=== PATIENT | female | born 1950 | race Caucasian/White ===

== ENCOUNTER 2023-04-11 09:07 | Outpatient (CLI) | payer MEDICARE, SELFPAY ==
--- NOTE | ~2023-04-11 | XR_ITS ---
EXAMINATION: XR abdomen/kub 1V INDICATION: Right-sided kidney stones TECHNIQUE: Supine views of the abdomen were obtained on 2 radiographs. COMPARISON: None FINDINGS: A 12 mm calcification projects in the right mid abdomen, possibly within the right ureter. A 6 mm calcification projects at the left kidney. A moderate volume of colonic stool is present. Ther e is a 3 mm calcification of the left there is a 3 mm stone of the right kidney upper pole. The visua lized lung bases are clear. Pelvis. A 4 mm calcifications noted in the right pelvis. IMPRESSION: 1. Right mid abdominal calcification which could be within the right ureter. 2. Bilateral lithiasis. 3. Pelvic calcifications, possibly phleboliths. Recommend comparison with any available CT imaging. Reviewed, dictated and finalized at location B. IRRIGATOR IMPRESSION: 1. Right mid abdominal calcification which could be within the right ureter. 2. Bilateral lithiasis. 3. Pelvic calcifications, possibly phleboliths. Recommend comparison with any a vailable CT imaging.
== END 2023-04-11 09:08 | disposition home or self-care (01) ==
PROVIDERS: PCP Family Medicine; Visit Provider Urology
DX: N20.0 Calculus of kidney (principal)
CPT/HCPCS: 74018

== ENCOUNTER 2023-04-26 12:51 | Outpatient (CLI) | payer MEDICARE, SELFPAY ==
[2023-04-26 13:37] LABS: Anion Gap 9 mmol/L (8-16); Blood Urea Nitrogen 11 mg/dL (7-17); Calcium 9.4 mg/dL (8.4-10.2); Carbon Dioxide 24 mmol/L (22-30); Chloride 104 mmol/L (98-107); Estimated Glomerular Filt Rate > 60; Glucose 142 mg/dL (65-110); INR 0.9; Potassium 3.8 mmol/L (3.4-5.0); Prothrombin Time 12.9 Seconds (11.1-14.7); Sodium 137 mmol/L (137-145)
== END 2023-04-26 12:52 | disposition home or self-care (01) ==
LOC: ANHSURGERY 12:55
PROVIDERS: Anesthesiology; PCP Family Medicine; Visit Provider Urology
DX: Z01.818 Encounter for other preprocedural examination (principal); Z79.899 Other long term (current) drug therapy; N20.0 Calculus of kidney
CPT/HCPCS: 36415; 80048; 85610; 85730; 87086

== ENCOUNTER 2023-04-29 01:39 | Day surgery (SDC) | payer MEDICARE, SELFPAY ==
[2023-04-20 12:56] VITALS: BMI 17.4
--- NOTE | 2023-04-20 13:23 | PC.NURSE ---
Addendum entered by Charla Giron RN 04/20/23 13:33: PT INFORMED TO USE SYMBICORT INHALER AM OF SURGERY - UNDERSTANDING VOICED Original Note: PRE-OP INSTRUCTIONS, PLEASE READ CAREFULLY Report to the Outpatient Waiting Room, entrance under the green pavilion located off [facility], at time _1030_ on date _04/29/23_. Planned Procedure Time: _1230_. Time changes happen often and if your time is changed the preop area will call you the afternoon before. - You and your visitor will be asked to self-screen and do not enter if you have any COVID symptoms. - A mask is optional within the hospital at this time. Patients may have clear liquids (water, carbonated beverages, clear teas, apple juice) until 3 hours prior to surgery (0930 AM) with a maximum of 20 ounces. - No food from midnight until time of surgery Take the following medications with a SIP of water the morning of surgery: _DILTIAZEM__ DO NOT STOP ANY OF YOUR OTHER PRESCRIPTION MEDICATIONS PRIOR TO SURGERY ?EXCEPT THE FOLLOWING Medications to discontinue per physician ___NONE____, Date to take last dose Please no make-up, nail estonian, hairspray, perfume, deodorant, or body powder the day of surgery. No jewelry (including any body piercings) or valuables the day of surgery, leave them at home. Please take a shower or bath the night before, or the morning of, surgery with an antibacterial soap. Wear comfortable, loose fitting clothing. - Jewelry must be removed prior to entering the operating room. Rings and piercings that are not removed may be cut off. - The hospital will not accept responsibility for valuables. - Please leave all valuables, including medications, at home the day of surgery. If you are going home after surgery, a licensed driver service technician must drive you home. - NO public transportation without another adult if you receive anesthesia. - We recommend that an adult stay with you for 24 hours following discharge. - We also recommend that you do not drive, make important decision, drink alcoholic beverages, or take any drugs that were not prescribed by your health care provider for at least 24 hours after your discharge time. Follow any additional instructions given to you from your surgeon. If you or anyone in your household have experienced Covid symptoms in the past week, please notify your surgeon or the nurse liaison at the phone number below for possible testing. Telephone instructions given to _PATIENT_and asked if any additional questions and then verbalized understanding. Patient advised to call surgeon office or pre surgery nurse liaison [phone] if any additional questions.
--- NOTE | 2023-04-28 13:46 | WPDANESEPPF ---
Anes - Initial Pre Proc Eval Procedure: Operation Date: 04/29/23 11:30 Proposed Procedures p Right Extracorporeal Shock Wave Lithotripsy - Odilon Goff MD s Cystoscopy, with Right Retrograde Pyelography - Odilon Goff MD Date/Time: 04/28/23 13:46 Surgeon: Odilon Goff MD Pre Op Diagnosis: right renal kidney stone Patient Data Age: 72 Gender: F Height: 1.55 m Weight: 41.81 kg Allergies Allergy/AdvReac Type Severity Reaction Status Date / Time cephalexin AdvReac UNABLE TO Unverified 04/20/23 12:52 RECALL gabapentin AdvReac INVOLUNTARY Verified 04/20/23 12:52 MUSCLE JERKING metronidazole [From Flagyl] AdvReac UNABLE TO Verified 04/20/23 12:52 RECALL Home Medications Medication Instructions Recorded Confirmed Type budesonide-formoterol HFA 160 2 puff inhalation BID 04/20/23 04/20/23 History mcg-4.5 mcg/actuation aerosol inhaler (Symbicort) cholecalciferol (vitamin D3) 25 25 mcg PO DAILY 04/20/23 04/20/23 History mcg (1,000 unit) tablet diltiazem HCl 240 mg 240 mg PO DAILY 04/20/23 04/20/23 History capsule,extended release 24 hr furosemide 20 mg tablet 20 mg DAILY 04/20/23 04/20/23 History nitrofurantoin 100 mg BID 04/20/23 04/20/23 History monohydrate/macrocrystals 100 mg capsule omeprazole 20 mg capsule,delayed 20 mg PO DAILY 04/20/23 04/20/23 History release potassium 20 mg chewable tablet 40 mg PO DAILY 04/20/23 04/20/23 History tramadol 50 mg tablet 100 mg BID 04/20/23 04/20/23 History trazodone 100 mg tablet 200 mg HS 04/20/23 04/20/23 History Results Review: All pre-operative results and documents have been reviewed as part of the pre-operative evaluation. [facility] Past Medical History Medical History (Updated 04/28/23 @ 13:48 by Addison Argueta DO) Benign tumor of lung CHF (congestive heart failure) Fibromyalgia GERD (gastroesophageal reflux disease) Tachycardia Surgical History Surgical History (Updated 04/28/23 @ 13:48 by Addison Argueta DO) History of kidney transplant Social History Social History Smoking packs per day: 1 Smoking cigarettes per day: 20.0 Years smoked: 10 Smoking pack-years: 10.00 Smoking status: Former smoker Tobacco type: cigarettes Second hand tobacco smoke exposure: No Smoking end date: 02/22/12 Alcohol intake: never Substance use: never Substance use type: does not use Living arrangements: with family Spiritual care concerns: No Anes - Eval Final PreProcedure Day of Procedure 04/28/23 13:46 Patient weight: normal Heart: regular rate and rhythm Lungs: clear to auscultation and normal air movement Airway: Mallampati scale class II Neurological: alert and oriented Last oral intake: >/= 8 hours ASA classification: IV Emergent: no Anesthetic plan: proceed Anesthesia type and monitoring: general LMA and standard monitoring Results Review: All pre-operative results and documents have been reviewed as part of the pre-operative evaluation. Informed Consent: The patient's anesthetic plan and its attendant risks and benefits were discussed with the patient/family/POA. Questions were solicited and answers provided to the satisfaction of the patient/family/POA.
--- NOTE | ~2023-04-29 | CT_ITS ---
Non-contrast CT scan of the Abdomen and Pelvis Clinical indication: Right ureteral stone Technique: 2.5 mm axial scans were obtained through the abdomen and pelvis without intravenous or or al contrast. Dose reduction technique was used on this scan by utilizing automated exposure control a nd iterative reconstruction technique. The dose-length product (DLP) was 177.42 mGy-cm. Findings: Images through the lung bases reveal large hiatal hernia. 8 mm round nonobstructing left renal stone present. There is a 1.2 x 0.6 cm ovoid stone at the very p roximal right ureter, with to moderate right hydronephrosis. Large right renal cysts are also present with somewhat confound evaluation of hydronephrosis. The liver, spleen, pancreas, gallbladder, and adrenals appear normal. There are atherosclerotic calci fications of the aorta. There is no evidence of bowel obstruction. Images through the pelvis were performed. There is no evidence of ascites or lymphadenopathy. Urinary bladder unremarkable. No pelvic mass seen. Impression: 1.2 x 0.6 cm ovoid stone at the proximal right ureter with probable moderate right hydronephrosis. 8mm round nonobstructing left renal stone. Bilateral renal cysts, including several large right renal cysts. Large hiatal hernia. Reviewed, dictated and finalized at location . [employer] Impression: 1.2 x 0.6 cm ovoid stone at the proximal right ureter with probable moderate ri ght hydronephrosis. 8mm round nonobstructing left renal stone. Bilateral renal cysts, including several large right renal cysts. Large hiatal hernia.
--- NOTE | ~2023-04-29 | XR_ITS ---
EXAMINATION: XR abdomen/kub 1V INDICATION: Urolithiasis TECHNIQUE: Supine views of the abdomen were obtained on 2 radiographs. COMPARISON: 04/11/2023 FINDINGS: A 3 mm stone projects in the right kidney upper pole. Again noted is a 12 mm calcification of the right mid abdomen just below the right L3 transverse process. There is a 7 mm stone of the lef t kidney lower pole. Stable calcifications are again noted in the pelvis, possibly phleboliths. The v isualized lung bases are clear. IMPRESSION: 1. Bilateral nephrolithiasis. 2. 12 mm calcification in the right mid abdomen which could be within the right ureter. Reviewed, dictated and finalized at location B. [employer]ACT ADMINISTRATION COORDINATOR
--- NOTE | 2023-04-29 06:24 | WPDHPUPDATE1 ---
History and Physical Update Update Date/Time: 04/29/23 06:24 History and Physical has been reviewed, including an updated exam of the patient. There are NO changes in the patient's condition. Risks, benefits, and alternatives have been discussed and questions answered. Patient agrees to proceed with procedure.
[2023-04-29 10:02] LABS: Appearance Urine Turbid (Clear); Bacteria Urine 4+ /hpf; Bilirubin Urine Negative (Negative); Blood Urine 2+ (Negative); Color Urine Yellow (Yellow); Glucose Urine UA Negative (Negative); Ketones Urine Negative (Negative); Leukocyte Esterase Ur 2+ LEU/UL (NEGATIVE); Nitrate Urine Negative (Negative); Non Pathogenic Casts 0-2; Protein Urine 2+ mg/dL (Negative); RBC Urine 21-50 /hpf (0-2); Specific Grav Ur 1.024 (1.001-1.035); Squamous Epithelial Cell Urine None seen /hpf (Few); Urobilinogen Urine 0.2 mg/dL (<2.0); WBC Urine >100 /hpf (0-3); pH Urine 5.5 (5.0-9.0)
[2023-04-29 10:03] LABS: Add Urine Microscopic? YES
[2023-04-29 10:07] VITALS: BP 137/117; PULSE 63; RESP 18; TEMP 36.8; O2SAT 100
== END 2023-04-29 11:00 | disposition home or self-care (01) ==
PROVIDERS: PCP Family Medicine; Visit Provider Urology
PROC: (CPT 50590; principal; 2023-04-29 11:30)
PROC: (CPT 52352; 2023-04-29 11:30)
DX: N20.0 Calculus of kidney (principal); Z53.09 Procedure and treatment not carried out because of other contraindication
CPT/HCPCS: 36415; 74018; 74176; 80048; 81001; 85610; 85730; 87086; 87088; 99211; G0463

== ENCOUNTER 2023-05-09 12:53 | Outpatient (CLI) | payer MEDICARE, SELFPAY ==
[2023-05-09 13:59] LABS: INR 0.9; Prothrombin Time 12.9 Seconds (11.1-14.7)
[2023-05-09 14:00] LABS: Partial Thromboplastin Time 25.8 Seconds (22.3-36.8)
== END 2023-05-09 12:54 | disposition home or self-care (01) ==
LOC: ANHSURGERY 12:56
PROVIDERS: PCP Family Medicine; Visit Provider Urology
DX: N20.0 Calculus of kidney (principal); Z01.818 Encounter for other preprocedural examination
CPT/HCPCS: 36415; 85610; 85730; 87086

== ENCOUNTER 2023-05-13 01:30 | Day surgery (SDC) | payer MEDICARE, SELFPAY ==
--- NOTE | 2023-05-03 11:37 | PC.NURSE ---
PRE-OP INSTRUCTIONS, PLEASE READ CAREFULLY Report to the Outpatient Waiting Room, entrance under the green pavilion located off [facility], at time _0730_ on date _05/13/23_. Planned Procedure Time: _0930_. Time changes happen often and if your time is changed the preop area will call you the afternoon before. - You and your visitor will be asked to self-screen and do not enter if you have any COVID symptoms. - A mask is optional within the hospital at this time. Patients may have clear liquids (water, carbonated beverages, clear teas, apple juice) until 3 hours prior to surgery (0630 AM) with a maximum of 20 ounces. - No food from midnight until time of surgery Take the following medications with a SIP of water the morning of surgery: _SYMBICORT INHALER, DILTIAZEM_ DO NOT STOP ANY OF YOUR OTHER PRESCRIPTION MEDICATIONS PRIOR TO SURGERY ?EXCEPT THE FOLLOWING Medications to discontinue per physician NONE___Date to take last dose Please no make-up, nail [place], hairspray, perfume, deodorant, or body powder the day of surgery. No jewelry (including any body piercings) or valuables the day of surgery, leave them at home. Please take a shower or bath the night before, or the morning of, surgery with an antibacterial soap. Wear comfortable, loose fitting clothing. - Jewelry must be removed prior to entering the operating room. Rings and piercings that are not removed may be cut off. - The hospital will not accept responsibility for valuables. - Please leave all valuables, including medications, at home the day of surgery. If you are going home after surgery, a licensed cement truck driver must drive you home. - NO public transportation without another adult if you receive anesthesia. - We recommend that an adult stay with you for 24 hours following discharge. - We also recommend that you do not drive, make important decision, drink alcoholic beverages, or take any drugs that were not prescribed by your health care provider for at least 24 hours after your discharge time. Follow any additional instructions given to you from your surgeon. If you or anyone in your household have experienced Covid symptoms in the past week, please notify your surgeon or the nurse liaison at the phone number below for possible testing. Telephone instructions given to _PATIENT_and asked if any additional questions and then verbalized understanding. Patient advised to call surgeon office or pre surgery nurse liaison [phone] if any additional questions.
[2023-05-03 11:39] VITALS: BMI 16.6
--- NOTE | 2023-05-05 10:37 | P.HP_ITS ---
History of Present Illness History of Present Illness Consent: Risks, benefits, and alternatives have been discussed and questions answered. Patient agrees to proceed with procedure. Chief complaint: Rt Ureteral Stone Narrative: Tiffany Mobley is a 72 year old female who actually had a 8 mm right renal/proximal ureteral stone diagnosed on PET scan. She was previously scheduled for right ESWL but presented with urinary tract infection. That is not been effectively treated and she is here again for for procedure. She is aware the risks, including but not limited to, adverse cardiopulmonary events, perinephric hematoma and need for additional procedures Review of Systems Review of Systems: All systems reviewed & are unremarkable except as noted in HPI and below PMFSH Past Medical History Medical History (Updated 05/05/23 @ 10:38 by Odilon Goff MD) Benign tumor of lung CHF (congestive heart failure) Fibromyalgia GERD (gastroesophageal reflux disease) Tachycardia Surgical History Surgical History (Updated 04/28/23 @ 13:48 by Addison Argueta DO) History of kidney transplant Social History Social History Smoking packs per day: 1 Smoking cigarettes per day: 20.0 Years smoked: 10 Smoking pack-years: 10.00 Smoking status: Former smoker Tobacco type: cigarettes Second hand tobacco smoke exposure: No Smoking end date: 02/22/12 Alcohol intake: never Substance use: never Substance use type: does not use Living arrangements: with family Spiritual care concerns: No Meds Home Medications and Allergies Home Medications Medication Instructions Recorded Confirmed Type budesonide-formoterol HFA 160 2 puff inhalation BID 04/20/23 05/03/23 History mcg-4.5 mcg/actuation aerosol inhaler (Symbicort) cholecalciferol (vitamin D3) 25 25 mcg PO DAILY 04/20/23 05/03/23 History mcg (1,000 unit) tablet diltiazem HCl 240 mg 240 mg PO DAILY 04/20/23 05/03/23 History capsule,extended release 24 hr furosemide 20 mg tablet 20 mg DAILY 04/20/23 05/03/23 History nitrofurantoin 100 mg BID 04/20/23 05/03/23 History monohydrate/macrocrystals 100 mg capsule omeprazole 20 mg capsule,delayed 20 mg PO DAILY 04/20/23 05/03/23 History release potassium 20 mg chewable tablet 40 mg PO DAILY 04/20/23 05/03/23 History tramadol 50 mg tablet 100 mg BID 04/20/23 05/03/23 History trazodone 100 mg tablet 200 mg HS 04/20/23 05/03/23 History Allergies Allergy/AdvReac Type Severity Reaction Status Date / Time cephalexin AdvReac UNABLE TO Unverified 05/03/23 11:34 RECALL gabapentin AdvReac INVOLUNTARY Verified 05/03/23 11:34 MUSCLE JERKING metronidazole [From Flagyl] AdvReac UNABLE TO Verified 05/03/23 11:34 RECALL Exam Const: General: no acute distress Resp: Effort & Inspection: normal respiratory effort GI: Inspection: non-distended GI Palp: No abdominal tenderness and No Guarding due to palpation present (GI) Auscultation: normal bowel sounds Assessment and Plan Assessment and plan (1) Right renal stone: Code(s): N20.0 - Calculus of kidney Status: Acute Assessment and Plan: * Right ESWL
[2023-05-13] VITALS (9 sets, daily range): BP systolic 118–131; BP diastolic 64–72; PULSE 53–75; RESP 12–54; TEMP 36.2–36.4; O2SAT 95–100
--- NOTE | ~2023-05-13 | XR_ITS ---
Supine and upright views of the abdomen Clinical history: Lithotripsy COMPARISON: 04/29/2023 Findings: Bowel gas pattern is nonspecific. No evidence for obstruction or free air. Proximal right u reteral stone and left renal stone are unchanged.. Osseous structures are intact. Impression: Stable proximal right ureteral stone and left renal stone. Reviewed, dictated and finalized at [facility]. Impression: Stable proximal right ureteral stone and left renal stone.
--- NOTE | 2023-05-13 06:17 | WPDHPUPDATE1 ---
History and Physical Update Update Date/Time: 05/13/23 06:17 History and Physical has been reviewed, including an updated exam of the patient. There are NO changes in the patient's condition. Risks, benefits, and alternatives have been discussed and questions answered. Patient agrees to proceed with procedure.
[2023-05-13] MEDS: LACTATED RINGERS 1,000 ML 30 ML IV CONT (08:00)
--- NOTE | 2023-05-13 09:11 | WPDANESEPPF ---
Anes - Initial Pre Proc Eval Procedure: Operation Date: 05/13/23 09:30 Proposed Procedures p Right Extracorporeal Shock Wave Lithotripsy - Odilon Goff MD Date/Time: 05/13/23 09:11 Surgeon: Odilon Goff MD Pre Op Diagnosis: Rt Ureteral Stone Patient Data Age: 72 Gender: F Height: 1.55 m Weight: 45 kg Last Vital Signs Temp 36.2 C L 05/13/23 08:00 Pulse 71 05/13/23 08:00 Resp 16 05/13/23 08:00 BP 131/69 05/13/23 08:00 Pulse Ox 97 05/13/23 08:00 O2 Del Method Room Air 05/13/23 08:00 Allergies Allergy/AdvReac Type Severity Reaction Status Date / Time cephalexin AdvReac UNABLE TO Unverified 05/13/23 08:39 RECALL gabapentin AdvReac INVOLUNTARY Verified 05/13/23 08:39 MUSCLE JERKING metronidazole [From Flagyl] AdvReac UNABLE TO Verified 05/13/23 08:39 RECALL Home Medications Medication Instructions Recorded Confirmed Type budesonide-formoterol HFA 160 2 puff inhalation BID 04/20/23 05/13/23 History mcg-4.5 mcg/actuation aerosol inhaler (Symbicort) cholecalciferol (vitamin D3) 25 25 mcg PO DAILY 04/20/23 05/13/23 History mcg (1,000 unit) tablet diltiazem HCl 240 mg 240 mg PO DAILY 04/20/23 05/13/23 History capsule,extended release 24 hr furosemide 20 mg tablet 20 mg DAILY 04/20/23 05/13/23 History nitrofurantoin 100 mg BID 04/20/23 05/13/23 History monohydrate/macrocrystals 100 mg capsule omeprazole 20 mg capsule,delayed 20 mg PO DAILY 04/20/23 05/13/23 History release potassium 20 mg chewable tablet 40 mg PO DAILY 04/20/23 05/13/23 History tramadol 50 mg tablet 100 mg BID 04/20/23 05/13/23 History trazodone 100 mg tablet 200 mg HS 04/20/23 05/13/23 History Patient hx anesthesia problems: none Family hx anesthesia problems: none Results Review: All pre-operative results and documents have been reviewed as part of the pre-operative evaluation. PMFSH Past Medical History Medical History Benign tumor of lung CHF (congestive heart failure) Fibromyalgia GERD (gastroesophageal reflux disease) Tachycardia Surgical History Surgical History (Updated 05/13/23 @ 09:14 by Solitario Aguilar MD) S/P thoracotomy Social History Social History Smoking packs per day: 1 Smoking cigarettes per day: 20.0 Years smoked: 10 Smoking pack-years: 10.00 Smoking status: Former smoker Tobacco type: cigarettes Second hand tobacco smoke exposure: No Smoking end date: 02/22/12 Alcohol intake: never Substance use: never Substance use type: does not use Living arrangements: with family Spiritual care concerns: No Anes - Eval Final PreProcedure Day of Procedure 05/13/23 09:11 Patient weight: thin Heart: regular rate and rhythm Lungs: clear to auscultation Airway: Mallampati scale class II Neurological: alert and oriented Last oral intake: >/= 8 hours ASA classification: III Emergent: no Anesthetic plan: proceed Anesthesia type and monitoring: general LMA and standard monitoring Results Review: All pre-operative results and documents have been reviewed as part of the pre-operative evaluation. Informed Consent: The patient's anesthetic plan and its attendant risks and benefits were discussed with the patient/family/POA. Questions were solicited and answers provided to the satisfaction of the patient/family/POA.
[2023-05-13] MEDS: levoFLOXacin 500 MG/D5W 100 ML 500 MG/100 ML BAG 100 MG IVPB (09:26)
--- NOTE | 2023-05-13 09:44 | W.PM.PROC2 ---
Procedure Note - Detailed Date of Procedure 05/13/23 Pre-op Diagnosis Rt Ureteral Stone Post-op Diagnosis Same Procedure Performed Right ESWL Surgeon Odilon Goff MD Anesthesia General Description of Procedure The patient was brought to the operative suite where he was placed in the supine position on the Dornier lithotripsy table. The focal point of the lithotripter was placed at an 8mm right mid-ureteral calculus. A total of 3000 shocks were delivered at a power setting of 4-5. There appeared to be good fragmentation of the stone. The patient tolerated the procedure well and was taken to the recovery room in good condition. Drains No Packing No Pathology None sent Complications No immediate complications Condition Stable Disposition PACU
== END 2023-05-13 12:15 | disposition home or self-care (01) ==
PROVIDERS: PCP Family Medicine; Visit Provider Urology
PROC: (CPT 50590; principal; 2023-05-13 09:30)
DX: N20.1 Calculus of ureter (principal); I50.9 Heart failure, unspecified; K21.9 Gastro-esophageal reflux disease without esophagitis; M79.7 Fibromyalgia; Z87.891 Personal history of nicotine dependence; Z79.51 Long term (current) use of inhaled steroids
CPT/HCPCS: 50590; 36415; 74018; 85610; 85730; 87086; J1596; J1956; J2405; J2704; J3010; J7120